=== PATIENT | female | born 1960 | race Caucasian/White ===

== ENCOUNTER → 2024-03-05 07:24 | Outpatient (REF) | payer OTHER, SELFPAY | LOC: RCS 07:24 | PROVIDERS: ATTENDING PHYSICIAN Internal Medicine Cardiovascular Disease; FAMILY PHYSICIAN Family Medicine | DX: I10 Essential (primary) hypertension (principal); Z82.49 Family history of ischemic heart disease and other diseases of the circulatory system; R73.02 Impaired glucose tolerance (oral) | CPT/HCPCS: 93017 ==

== ENCOUNTER → 2024-09-24 07:40 | Outpatient (REF) | payer OTHER, SELFPAY | LOC: HWWDC 07:40 | PROVIDERS: ATTENDING PHYSICIAN Family Medicine | DX: Z12.31 Encounter for screening mammogram for malignant neoplasm of breast (principal) | CPT/HCPCS: 77063; 77067 ==

== ENCOUNTER → 2025-07-17 17:04 | Outpatient (REF) | payer OTHER, SELFPAY | LOC: RAD 17:04 | PROVIDERS: ATTENDING PHYSICIAN Family Medicine | DX: M25.562 Pain in left knee (principal) | CPT/HCPCS: 73564 ==

== ENCOUNTER → 2025-08-26 07:02 | Outpatient (REF) | payer OTHER, SELFPAY | LOC: HWRCS 07:02 | PROVIDERS: ATTENDING PHYSICIAN Internal Medicine Cardiovascular Disease; FAMILY PHYSICIAN Family Medicine | DX: I51.7 Cardiomegaly (principal) | CPT/HCPCS: 93306 ==

== ENCOUNTER → 2025-09-25 07:29 | Outpatient (REF) | payer OTHER, SELFPAY | LOC: HWWDC 07:29 | PROVIDERS: ATTENDING PHYSICIAN Family Medicine | DX: Z12.31 Encounter for screening mammogram for malignant neoplasm of breast (principal) | CPT/HCPCS: 77063; 77067 ==